=== PATIENT | female | born 1955 | race Two or more races ===

== ENCOUNTER 2019-08-20 09:16 | Emergency (ER) | payer MEDICARE, OTHER ==
[~2019-08-20] VITALS: Ht 157.5 cm; Wt 83.0 kg
[2019-08-20 09:20] VITALS: BP 141/72
== END 2019-08-20 10:34 | disposition home or self-care (01) ==
LOC: ED 10:00
DX: R06.00 Dyspnea, unspecified (principal); Z76.0 Encounter for issue of repeat prescription; J45.909 Unspecified asthma, uncomplicated
CPT/HCPCS: 99283